=== PATIENT | female | born 1940 | race African-American/Black ===

== ENCOUNTER 2016-11-23 00:48 | Inpatient (IN) | payer OTHER ==
[~2016-11-23] VITALS: Ht 165.1 cm; Wt 68.0 kg
[2016-11-23 02:33] LABS: CARBON DIOXIDE 27.1 mmol/L (21-32); CHLORIDE SERUM 104 mmol/L (98-107); CREATININE SERUM 1.4 mg/dL (0.6-1.0); GLUCOSE SERUM 145 mg/dL (74-106); POTASSIUM SERUM 3.2 mmol/L (3.5-5.1); SODIUM SERUM 139 mmol/L (136-145)
[2016-11-23 02:46] LABS: ALBUMIN 3.3 g/dL (3.4-5.0); ALKALINE PHOSPHATASE 86 U/L (46-116); ALT/SGPT 21 U/L (14-59); AST/SGOT 17 U/L (15-37); BILIRUBIN TOTAL 0.18 mg/dL (0.20-1.00); T4(THYROXINE) 11.9 ug/dL (4.7-13.3); TOTAL PROTEIN, SERUM 7.3 g/dL (6.4-8.2)
[2016-11-23 02:56] LABS: BASOPHIL % 0.2 % (0-2); PLATELET COUNT 288 x10^3mcL (130-400)
[2016-11-23 02:58] LABS: RED CELL DISTRIBUTION WIDTH 18.2 % (11.5-14.5)
[2016-11-23 03:32] LABS: microscopic required? YES; urine erythrocyte NEGATIVE (NEGATIVE)
[2016-11-23] MEDS ORDERED: METFORMIN HCL500 MG PO ×2 (05:26→16:48)
[2016-11-23 05:43] VITALS: BP 126/61
[2016-11-23 07:53] LABS: MAGNESIUM 2.4 mg/dL (1.8-2.4); PHOSPHOROUS 2.7 mg/dL (2.5-4.9)
[2016-11-23 08:00] LABS: CHOLESTEROL/HDL RATIO 1.8
[2016-11-23 08:04] LABS: FREE T4 1.6 ng/dL (0.76-1.46); FREE THYROXINE INDEX 5.5 ug/dL (1.4-4.5); T4(THYROXINE) 13.3 ug/dL (4.7-13.3)
[2016-11-23 08:58] LABS: T3 TOTAL 0.89 ng/mL
[2016-11-23 09:59] VITALS: BP 144/77
[2016-11-23 14:15] VITALS: BP 134/71
[2016-11-23] MEDS ORDERED: CLOPIDOGREL75 M1 PO (16:47)
[2016-11-23] MEDS ORDERED: KLOR-CON M2020 MEQ PO (16:48)
[2016-11-23] MEDS ORDERED: DILTIAZEM HCL180 MG PO (16:49)
[2016-11-23] MEDS ORDERED: ZESTRIL20 MG PO (16:49)
[2016-11-23] MEDS ORDERED: LEVOTHYROXIN0.075 M2 PO (16:50)
[2016-11-23] MEDS ORDERED: ASPIR 8181 MG PO (16:51)
[2016-11-23] MEDS ORDERED: SIMVASTATIN20 M1 PO (16:51)
[2016-11-23] MEDS ORDERED: MULTIVITAMIN1 SGL PO (16:52)
[2016-11-23] MEDS ORDERED: OSCD PO (16:53)
[2016-11-23] MEDS ORDERED: THE MEDICINE S300 MG PO (16:54)
[2016-11-23] MEDS ORDERED: COSOPT OCUMETER10 ML OU (16:55)
[2016-11-23] MEDS ORDERED: MASON NATURAL500 M1 PO (16:55)
[2016-11-23] MEDS ORDERED: LATANOPROST2.5 ML OU (16:58)
[2016-11-23 18:10] VITALS: BP 121/79
[2016-11-23 20:59] VITALS: BP 124/75
[2016-11-23] MEDS ORDERED: GABAPENTIN600 M1 PO (21:27)
[2016-11-24 05:44] VITALS: BP 130/73
[2016-11-24 06:15] LABS: BASOPHIL % 0.4 % (0-2); PLATELET COUNT 247 x10^3mcL (130-400)
[2016-11-24 06:30] LABS: CALCIUM 8.4 mg/dL (8.5-10.1); CARBON DIOXIDE 28.4 mmol/L (21-32); CHLORIDE SERUM 108 mmol/L (98-107); CREATININE SERUM 0.9 mg/dL (0.6-1.0); GLUCOSE SERUM 101 mg/dL (74-106); POTASSIUM SERUM 3.1 mmol/L (3.5-5.1); RED CELL DISTRIBUTION WIDTH 18.3 % (11.5-14.5); SODIUM SERUM 142 mmol/L (136-145)
[2016-11-24 07:49] LABS: rbc morphology (normal/abnorm) ABNORMAL (NORMAL)
[2016-11-24 10:19] VITALS: BP 140/75
[2016-11-24 12:45] VITALS: BP 127/74
[2016-11-24 17:08] VITALS: BP 148/72
[2016-11-24 21:42] VITALS: BP 146/80
[2016-11-25 06:13] VITALS: BP 137/71
[2016-11-25 09:18] LABS: BASOPHIL % 0.4 % (0-2); PLATELET COUNT 237 x10^3mcL (130-400)
[2016-11-25 09:19] LABS: RED CELL DISTRIBUTION WIDTH 18.6 % (11.5-14.5)
[2016-11-25 09:20] LABS: CALCIUM 8.4 mg/dL (8.5-10.1); CARBON DIOXIDE 25.3 mmol/L (21-32); CHLORIDE SERUM 107 mmol/L (98-107); CREATININE SERUM 0.9 mg/dL (0.6-1.0); GLUCOSE SERUM 156 mg/dL (74-106); POTASSIUM SERUM 3.6 mmol/L (3.5-5.1); SODIUM SERUM 140 mmol/L (136-145); rbc morphology (normal/abnorm) ABNORMAL (NORMAL)
[2016-11-25 10:23] VITALS: BP 139/6
[2016-11-25] MEDS ORDERED: FERL PO (11:42)
[2016-11-25] MEDS ORDERED: LEVAQUIN750 MG PO (12:15)
[2016-11-25 12:41] VITALS: BP 139/6
[2016-11-25] MEDS ORDERED: BD LACTINEX1.4 MG PO (12:48)
== END 2016-11-25 14:32 | disposition home or self-care (01) | DRG 689 ==
LOC: ED 00:48 → DU 05:03
PROVIDERS: Emergency Medicine; Family Medicine; ADMIT Family Medicine
DX: N39.0 Urinary tract infection, site not specified (principal); G93.41 Metabolic encephalopathy; N17.0 Acute kidney failure with tubular necrosis; E44.1 Mild protein-calorie malnutrition; E86.0 Dehydration; E11.65 Type 2 diabetes mellitus with hyperglycemia; E11.51 Type 2 diabetes mellitus with diabetic peripheral angiopathy without gangrene; E87.6 Hypokalemia; E03.9 Hypothyroidism, unspecified; I36.1 Nonrheumatic tricuspid (valve) insufficiency; I34.0 Nonrheumatic mitral (valve) insufficiency; I37.1 Nonrheumatic pulmonary valve insufficiency; I10 Essential (primary) hypertension; E78.5 Hyperlipidemia, unspecified; H40.9 Unspecified glaucoma; Z91.81 History of falling; Z79.82 Long term (current) use of aspirin; D50.9 Iron deficiency anemia, unspecified; Z68.24 Body mass index [BMI] 24.0-24.9, adult; Z79.84 Long term (current) use of oral hypoglycemic drugs
CPT/HCPCS: 82962; 83880; 84439; 97110-GP; 97116-GP; J1956; J7030; Q0092